=== PATIENT | male | born 1990 | race Caucasian/White ===

== ENCOUNTER 2024-09-14 09:05 | Emergency (ER) | payer MEDICAID ==
[~2024-09-14] VITALS: Ht 177.8 cm; Wt 95.5 kg
[~2024-09-14 09:05] MED LIST: AMOX1TAB15 PO
[2024-09-14 09:09] VITALS: TEMP 98.4
[2024-09-14 11:35] VITALS: BP 125/75; PULSE 90; RESP 18; O2SAT 98
== END 2024-09-14 11:36 | disposition home or self-care (01) ==
LOC: EMS 09:05
DX: K57.20 Diverticulitis of large intestine with perforation and abscess without bleeding (principal); Z79.899 Other long term (current) drug therapy
CPT/HCPCS: 99282; Z7502

== ENCOUNTER 2024-09-17 19:25 | Inpatient (IN) | payer OTHER, MEDICAID ==
[~2024-09-17] VITALS: Ht 165.1 cm; Wt 95.5 kg
[2024-09-17 19:58] VITALS: TEMP 98.4
[2024-09-17] MEDS ORDERED: IOHEXOL 300 MG/ML 100 ML VIAL ONE (22:42)
[2024-09-17] MEDS ORDERED: SODIUM CHLORIDE 0.9% 100 ML ONE (22:42)
[2024-09-17] MEDS: SODIUM CHLORIDE 0.9% 1,000 ML IV ONE (22:49)
[2024-09-17 23:12] LABS: PLATELET COUNT (AUTO) 435 K/uL (150-450); RED BLOOD CELL COUNT(AUTO) 4.66 MIL/uL (4.50-5.90); RED CELL DISTRIBUTION WIDTH 13.5 % (11.5-14.5); WHITE BLOOD COUNT (AUTO) 8.5 K/uL (4.5-11.0)
[2024-09-17 23:20] LABS: CALCIUM, TOTAL 8.7 mg/dL (8.8-10.5); CREATININE 0.85 mg/dL (0.60-1.30); GLOMERULAR FILTR. RATE CALC > 60 mL/min (>60); GLUCOSE,RANDOM 98 mg/dL (70-110); SODIUM SERUM 140 mmol/L (136-145); UREA NITROGEN, BLOOD 12 mg/dL (7-18)
[2024-09-17 23:30] LABS: LACTIC ACID 1.1 mmol/L (0.4-2.0)
[2024-09-18] MEDS ORDERED: ONDANSETRON HCL 4 MG/2 ML VIAL IVP PRN (00:45)
[2024-09-18] MEDS ORDERED: ACETAMINOPHEN 325 MG TABLET PO PRN (00:45)
[2024-09-18] MEDS: SODIUM CHLORIDE 0.9% 1,000 ML IV ONE (01:00)
[2024-09-18 01:16] LABS: APPEARANCE,URINE CLEAR (CLEAR); GLUCOSE, URINE (UA) NEGATIVE (NEGATIVE); LEUKOCYTE ESTERASE ,URINE NEGATIVE (NEGATIVE); NITRATE,URINE NEGATIVE (NEGATIVE); OCCULT BLOOD,URINE NEGATIVE (NEGATIVE)
[2024-09-18 01:22] LABS: SPECIFIC GRAVITIY, URINE 1.050 (1.003-1.030)
[2024-09-18] MEDS: FAMOTIDINE 20 MG TABLET PO SCH (08:50)
[2024-09-18] MEDS: DOCUSATE SODIUM 100 MG CAPSULE PO SCH (08:50)
[2024-09-18] MEDS ORDERED: IOHEXOL 300 MG/ML 50 ML VIAL ONE (09:32)
[2024-09-18 09:34] VITALS: BP 120/78; PULSE 59
[2024-09-18 10:08] VITALS: BP 122/76; PULSE 55
[2024-09-18 10:34] VITALS: BP 117/75; PULSE 61; RESP 14; O2SAT 97
== END 2024-09-18 13:00 | disposition home or self-care (01) | DRG 392 ==
LOC: EMS 19:25 → UNDOADMIN 09-18 00:36 → EDH 09-18 00:36
PROVIDERS: ADMIT Internal Medicine; ATTEND Internal Medicine
PROC: 0W9J30Z Drainage of Pelvic Cavity with Drainage Device, Percutaneous Approach (ICD-10-PCS; principal; 2024-09-18)
DX: K57.20 Diverticulitis of large intestine with perforation and abscess without bleeding (principal); Z79.899 Other long term (current) drug therapy
CPT/HCPCS: 74177; 76000; 80048; 81003; 83605; 85025; 96360; 99285; G0378; J7050; Q9967; 36415-L1; 36415-TC

== ENCOUNTER 2024-10-02 11:23 | Emergency (ER) | payer OTHER, MEDICAID ==
[~2024-10-02] VITALS: Ht 177.8 cm; Wt 99.5 kg
[2024-10-02 11:27] VITALS: TEMP 98.5
[2024-10-02 12:40] LABS: PLATELET COUNT (AUTO) 233 K/uL (150-450); RED BLOOD CELL COUNT(AUTO) 4.88 MIL/uL (4.50-5.90); RED CELL DISTRIBUTION WIDTH 14.1 % (11.5-14.5); WHITE BLOOD COUNT (AUTO) 5.2 K/uL (4.5-11.0)
[2024-10-02 12:48] LABS: CALCIUM, TOTAL 8.6 mg/dL (8.8-10.5); CREATININE 0.81 mg/dL (0.60-1.30); GLOMERULAR FILTR. RATE CALC > 60 mL/min (>60); GLUCOSE,RANDOM 96 mg/dL (70-110); SODIUM SERUM 141 mmol/L (136-145); UREA NITROGEN, BLOOD 8 mg/dL (7-18)
[2024-10-02 13:36] VITALS: BP 122/79; PULSE 61; RESP 16; O2SAT 97
== END 2024-10-02 13:58 | disposition home or self-care (01) ==
LOC: EMS 11:27
DX: T85.848A Pain due to other internal prosthetic devices, implants and grafts, initial encounter (principal); Z98.890 Other specified postprocedural states; Y92.89 Other specified places as the place of occurrence of the external cause
CPT/HCPCS: 80048; 85025; 85610; 99283

== ENCOUNTER 2024-10-04 07:08 | Emergency (ER) | payer OTHER, MEDICAID ==
[~2024-10-04] VITALS: Ht 170.2 cm; Wt 86.0 kg
[2024-10-04 07:12] VITALS: TEMP 98.2
[2024-10-04 11:49] VITALS: BP 112/73; PULSE 65
[2024-10-04 12:04] VITALS: BP 114/68; PULSE 78
[2024-10-04] MEDS: IOHEXOL 300 MG/ML 50 ML VIAL IVP ONE (12:16)
[2024-10-04 12:50] VITALS: BP 110/71; PULSE 63; RESP 16; O2SAT 98
== END 2024-10-04 12:52 | disposition home or self-care (01) ==
LOC: EMS 07:44
DX: K57.20 Diverticulitis of large intestine with perforation and abscess without bleeding (principal)
CPT/HCPCS: 99284; 76000; Q9967; 96374

== ENCOUNTER 2024-10-18 07:12 | Emergency (ER) | payer OTHER, MEDICAID ==
[~2024-10-18] VITALS: Ht 175.3 cm; Wt 87.7 kg
[2024-10-18 07:14] VITALS: TEMP 97.9
[2024-10-18 08:07] LABS: PLATELET COUNT (AUTO) 252 K/uL (150-450); RED BLOOD CELL COUNT(AUTO) 4.88 MIL/uL (4.50-5.90); RED CELL DISTRIBUTION WIDTH 13.9 % (11.5-14.5); WHITE BLOOD COUNT (AUTO) 5.8 K/uL (4.5-11.0)
[2024-10-18 08:11] LABS: CALCIUM, TOTAL 8.3 mg/dL (8.8-10.5); CREATININE 0.76 mg/dL (0.60-1.30); GLOMERULAR FILTR. RATE CALC > 60 mL/min (>60); GLUCOSE,RANDOM 106 mg/dL (70-110); SODIUM SERUM 138 mmol/L (136-145); UREA NITROGEN, BLOOD 10 mg/dL (7-18)
[2024-10-18] MEDS ORDERED: IOHEXOL 300 MG/ML 10 ML VIAL ONE (10:12)
[2024-10-18 10:55] VITALS: BP 111/75; PULSE 65; RESP 18; O2SAT 98
== END 2024-10-18 10:58 | disposition home or self-care (01) ==
LOC: EMS 07:12
DX: K65.1 Peritoneal abscess (principal); R10.9 Unspecified abdominal pain; Z98.890 Other specified postprocedural states
CPT/HCPCS: 99284; 76000; 80048; 85025; 36415; Q9967

== ENCOUNTER 2024-11-01 08:06 | Emergency (ER) | payer OTHER, MEDICAID ==
[~2024-11-01] VITALS: Ht 167.6 cm; Wt 96.0 kg
[2024-11-01 08:31] LABS: PLATELET COUNT (AUTO) 331 K/uL (150-450); RED BLOOD CELL COUNT(AUTO) 5.04 MIL/uL (4.50-5.90); RED CELL DISTRIBUTION WIDTH 13.5 % (11.5-14.5); WHITE BLOOD COUNT (AUTO) 9.1 K/uL (4.5-11.0)
[2024-11-01 08:36] LABS: CALCIUM, TOTAL 8.8 mg/dL (8.8-10.5); CREATININE 0.82 mg/dL (0.60-1.30); GLOMERULAR FILTR. RATE CALC > 60 mL/min (>60); GLUCOSE,RANDOM 108 mg/dL (70-110); SODIUM SERUM 141 mmol/L (136-145); UREA NITROGEN, BLOOD 14 mg/dL (7-18)
[2024-11-01 08:41] LABS: ASPARTATE AMINOTRANSFERASE 21 U/L (15-37); TOTAL PROTEIN, SERUM 7.5 g/dL (6.4-8.2)
[2024-11-01] MEDS ORDERED: IOHEXOL 300 MG/ML 10 ML VIAL ONE (09:57)
[2024-11-01 09:59] VITALS: BP 127/76; PULSE 59
[2024-11-01 10:09] VITALS: BP 135/78; PULSE 61
[2024-11-01] MEDS: IOHEXOL 300 MG/ML 10 ML VIAL IVP ONE (10:11)
[2024-11-01 12:17] VITALS: BP 117/84; PULSE 75; RESP 18; TEMP 97.9; O2SAT 97
== END 2024-11-01 12:27 | disposition home or self-care (01) ==
LOC: EMS 08:06
DX: K57.20 Diverticulitis of large intestine with perforation and abscess without bleeding (principal); Z98.890 Other specified postprocedural states
CPT/HCPCS: 99285; 80053; 85025; 85610; 36415; 75984; Q9967; 99284